=== PATIENT | female | born 1980 | race Caucasian/White ===

== ENCOUNTER → 2020-10-10 | Outpatient (CLI) | payer BC ==
[2020-10-10 09:02] LABS: HCT 39.4 % (34.0-46.0); HGB 12.6 gm/dL (11.4-16.0); MCH 28.7 pg (25.0-35.0); MCHC 32.1 g/dL (31.0-37.0); MCV 89.3 fL (80.0-100.0); Mean Platelet Volume 7.5; Platelet Count 331 k/uL (150-450); RBC 4.41 m/uL (3.80-5.40); RDW 12.7 % (11.5-15.5); WBC 7.8 k/uL (3.8-10.6)
--- NOTE | 2020-10-10 09:07 | MM ---
Reason for exam: screening (asymptomatic). Last mammogram was performed 9 years and 9 months ago. History: Patient is nulliparous. Family history of breast cancer in paternal grandmother at age 60 and breast cancer in mother at age 40. Took hormonal contraceptives for 5 years. Physical Findings: A clinical breast exam by your physician is recommended on an annual basis and results should be correlated with mammographic findings. MG Screening Mammo w CAD Bilateral CC and MLO view(s) were taken. No prior studies available for comparison. The breast tissue is extremely dense which could obscure a lesion on mammography. Focal asymmetry right breast several levels. ASSESSMENT: Incomplete: need additional imaging evaluation, BI-RAD 0 RECOMMENDATION: Special view mammogram and ultrasound of the right breast. [facility] will attempt to contact patient to return for supplemental views and ultrasound.
[2020-10-10 09:48] LABS: T4, Free (Free Thyroxine) 0.94 ng/dL (0.78-2.19)
== END | disposition home or self-care (01) ==
LOC: RADMAMWWP 08:00
PROVIDERS: ATTEND Obstetrics & Gynecology
DX: Z12.31 Encounter for screening mammogram for malignant neoplasm of breast (principal); Z13.220 Encounter for screening for lipoid disorders
CPT/HCPCS: 77067; 80061; 84439; 84443; 84479; 85027

== ENCOUNTER → 2020-10-15 | Outpatient (CLI) | payer BC ==
--- NOTE | 2020-10-15 09:29 | MM ---
Reason for exam: additional evaluation requested from abnormal screening. Last mammogram was performed less than 1 month ago. History: Patient is nulliparous. Family history of breast cancer in paternal grandmother at age 60 and breast cancer in mother at age 40. Took hormonal contraceptives for 5 years beginning at age 17. Physical Findings: Nurse did not find any significant physical abnormalities on exam. MG 3D Work Up W/Cad RT Spot compression CC, spot compression MLO, and LM view(s) were taken of the right breast. Prior study comparison: October 10, 2020, bilateral MG screening mammo w CAD. January 14, 2011, right diagnostic mammogram w/CAD. The breast tissue is heterogeneously dense. This may lower the sensitivity of mammography. There is no discrete abnormality. These results were verbally communicated with the patient and result sheet given to the patient on 10/15/20. ASSESSMENT: Benign, BI-RAD 2 RECOMMENDATION: Return to routine screening mammogram schedule for both breasts.
--- NOTE | 2020-10-15 09:30 | USB ---
Reason for exam: additional evaluation requested from abnormal screening. History: Patient is nulliparous. Family history of breast cancer in paternal grandmother at age 60 and breast cancer in mother at age 40. Took hormonal contraceptives for 5 years beginning at age 17. US Breast Workup RT Technologist: Angelica Kidd Right complete breast ultrasound includes all four quadrants, the retroareolar region and axilla. Finding demonstrates no cystic or solid lesion seen. These results were verbally communicated with the patient and result sheet given to the patient on 10/15/20. ASSESSMENT: Benign, BI-RAD 2 RECOMMENDATION: Return to routine screening mammogram schedule for both breasts.
== END | disposition home or self-care (01) ==
LOC: RADMAMWWP 07:46
PROVIDERS: ATTEND Obstetrics & Gynecology
DX: R92.8 Other abnormal and inconclusive findings on diagnostic imaging of breast (principal)
CPT/HCPCS: 77061; 77065

== ENCOUNTER → 2021-10-16 | Outpatient (CLI) | payer BC ==
--- NOTE | 2021-10-16 10:44 | MM ---
Reason for exam: screening (asymptomatic). Last mammogram was performed 1 year ago. History: Patient is nulliparous. Family history of breast cancer in paternal grandmother at age 60 and breast cancer in mother at age 40. Took hormonal contraceptives for 5 years beginning at age 17. Physical Findings: A clinical breast exam by your physician is recommended on an annual basis and results should be correlated with mammographic findings. MG Screening Mammo w CAD Bilateral CC and MLO view(s) were taken. Prior study comparison: October 15, 2020, right breast MG 3d work up w/cad RT. October 10, 2020, bilateral MG screening mammo w CAD. The breast tissue is heterogeneously dense. This may lower the sensitivity of mammography. Finding: There is a 10 mm obscured round mass in the lower inner quadrant, posterior, middle position of the right breast. ASSESSMENT: Incomplete: need additional imaging evaluation, BI-RAD 0 RECOMMENDATION: Special view mammogram and ultrasound of the right breast. [facility] will attempt to contact patient to return for supplemental views and ultrasound.
== END | disposition home or self-care (01) ==
LOC: RADMAMWWP 07:59
PROVIDERS: ATTEND Obstetrics & Gynecology
DX: Z12.31 Encounter for screening mammogram for malignant neoplasm of breast (principal); Z80.3 Family history of malignant neoplasm of breast
CPT/HCPCS: 77067

== ENCOUNTER → 2021-10-24 | Outpatient (CLI) | payer BC ==
--- NOTE | 2021-10-24 10:32 | USB ---
Reason for exam: additional evaluation requested from abnormal screening. History: Patient is nulliparous. Family history of breast cancer in paternal grandmother at age 60 and breast cancer in mother at age 40. Took hormonal contraceptives for 5 years beginning at age 17. US Breast Workup Limited RT Right limited breast ultrasound including focal area of concern, retroareolar and axilla demonstrates no cystic or solid lesion seen. These results were verbally communicated with the patient and result sheet given to the patient on 10/24/21. ASSESSMENT: Negative, BI-RAD 1 RECOMMENDATION: Return to routine screening mammogram schedule for both breasts.
--- NOTE | 2021-10-24 10:32 | MM ---
Reason for exam: additional evaluation requested from abnormal screening. Last mammogram was performed less than 1 month ago. History: Patient is nulliparous. Family history of breast cancer in paternal grandmother at age 60 and breast cancer in mother at age 40. Took hormonal contraceptives for 5 years beginning at age 17. Physical Findings: Nurse did not find any significant physical abnormalities on exam. MG 3D Work Up W/Cad RT Spot compression CC, spot compression MLO, and LM view(s) were taken of the right breast. Prior study comparison: October 16, 2021, bilateral MG screening mammo w CAD. October 15, 2020, right breast MG 3d work up w/cad RT. The breast tissue is heterogeneously dense. This may lower the sensitivity of mammography. There is no discrete abnormality including area of concern right lower inner quadrant. No significant new findings when compared with previous films. These results were verbally communicated with the patient and result sheet given to the patient on 10/24/21. ASSESSMENT: Benign, BI-RAD 2 RECOMMENDATION: Return to routine screening mammogram schedule for both breasts.
== END | disposition home or self-care (01) ==
LOC: RADMAMWWP 07:38
PROVIDERS: ATTEND Obstetrics & Gynecology
DX: R92.8 Other abnormal and inconclusive findings on diagnostic imaging of breast (principal); Z80.3 Family history of malignant neoplasm of breast
CPT/HCPCS: 77061; 77065

== ENCOUNTER → 2022-10-19 | Outpatient (CLI) | payer BC ==
--- NOTE | 2022-10-20 08:32 | MM ---
Reason for Exam: Screening (asymptomatic). Last screening mammogram was performed 12 month(s) ago. Patient History: Menarche at age 12. Patient has no children. Hormonal Contraceptives for 5 years from age 17 until age 22. Paternal grandmother had breast cancer, age 60. Mother had breast cancer, age 40. Risk Values: Kat 5 year model risk: 1.3%. NCI Lifetime model risk: 18.5%. Prior Study Comparison: 10/15/2020 Right Diagnostic Mammogram, [facility]. 10/16/2021 Bilateral Screening Mammogram, [facility]. 10/24/2021 Right Diagnostic Mammogram, [facility]. Tissue Density: The breast tissue is heterogeneously dense. This may lower the sensitivity of mammography. Findings: Analyzed By CAD. There is no suspicious group of microcalcifications or new suspicious mass in either breast. Overall Assessment: Negative, BI-RAD 1 Management: Screening Mammogram of both breasts in 1 year. A clinical breast exam by your physician is recommended on an annual basis and results should be correlated with mammographic findings. Electronically signed and approved by: Dominick Lee M.D. Radiologis
== END | disposition home or self-care (01) ==
LOC: RADMAMWWP 08:18
PROVIDERS: ATTEND Obstetrics & Gynecology
DX: Z12.31 Encounter for screening mammogram for malignant neoplasm of breast (principal); Z80.3 Family history of malignant neoplasm of breast
CPT/HCPCS: 77063; 77067

== ENCOUNTER → 2023-10-21 | Outpatient (CLI) | payer BC ==
[2023-10-21 15:18] LABS: ALT 19 U/L (8-44); AST 19 U/L (13-35); Albumin 4.7 g/dL (3.8-4.9); Albumin/Globulin Ratio 1.88 Ratio (1.60-3.17); Alkaline Phosphatase 38 U/L (41-126); BUN/Creat Ratio 13.43 Ratio (12.00-20.00); Blood Urea Nitrogen 9.4 mg/dL (9.0-27.0); Calcium 9.8 mg/dL (8.7-10.3); Carbon Dioxide 23.4 mmol/L (21.6-31.8); Chloride 104 mmol/L (96-109); Chol/HDL Ratio 1.77 Ratio; Globulin 2.5 g/dL (1.6-3.3); Glucose 104 mg/dL (70-110); LDL Cholesterol,Calculated 62.9 mg/dL (0.0-131.0); Potassium 4.4 mmol/L (3.5-5.5); Sodium 142 mmol/L (135-145); Total Bilirubin 0.4 mg/dL (0.3-1.2); Total Protein 7.2 g/dL (6.2-8.2); VLDL Calculation 15.12 mg/dL (5.00-40.00)
[2023-10-21 15:21] LABS: HCT 40.7 % (37.2-46.3); HGB 13.1 g/dL (12.0-15.0); MCH 28.6 pg (27.0-32.0); MCHC 32.2 g/dL (32.0-37.0); MCV 88.9 FL (80.0-97.0); Mean Platelet Volume 10.6 FL (9.5-12.2); NRBC Per 100 WBC 0 X 10*3/uL (0.00-0.01); Platelet Count 367 X 10*3/uL (140-440); RBC 4.58 X 10*6/uL (4.10-5.20); RDW 13.1 % (11.5-14.5); WBC 14.29 X 10*3/uL (4.50-10.00)
--- NOTE | 2023-10-21 20:26 | MM ---
Reason for Exam: Screening (asymptomatic). Last screening mammogram was performed 12 month(s) ago. Patient History: Menarche at age 12. Patient has no children. Hormonal Contraceptives for 5 years from age 17 until age 22. Paternal grandmother had breast cancer, age 60. Mother had breast cancer, age 40. Last menstrual period: 10/13/2023 Risk Values: Kat 5 year model risk: 1.4%. NCI Lifetime model risk: 18.3%. Prior Study Comparison: 10/16/2021 Bilateral Screening Mammogram, [facility]. 10/24/2021 Right Diagnostic Mammogram, [facility]. 10/19/2022 Bilateral MG 3D screening mammo w/cad, [facility]. Tissue Density: The breast tissue is heterogeneously dense. This may lower the sensitivity of mammography. Findings: Analyzed By CAD. There is no suspicious group of microcalcifications or new suspicious mass in either breast. Overall Assessment: Negative, BI-RAD 1 Management: Screening Mammogram of both breasts in 1 year. . Patient should continue monthly self-breast exams. A clinical breast exam by your physician is recommended on an annual basis. This exam should not preclude additional follow-up of suspicious palpable abnormalities. Note on Kat scores and lifetime risk: 1. A Kat score greater than 3% is considered moderate risk. If this is the case, consider specialist referral to assess eligibility for a risk reducing agent. 2. If overall lifetime risk for the development of breast cancer is 20% or higher, the patient may qualify for future screening with alternating mammogram and breast MRI. Electronically signed and approved by: Jeremiah Patterson M.D. Radiologist
== END | disposition home or self-care (01) ==
LOC: RADMAMWWP 07:38
PROVIDERS: ATTEND Obstetrics & Gynecology
DX: Z12.31 Encounter for screening mammogram for malignant neoplasm of breast (principal); Z13.220 Encounter for screening for lipoid disorders; I10 Essential (primary) hypertension; Z80.3 Family history of malignant neoplasm of breast
CPT/HCPCS: 77063; 77067; 80053; 80061; 85027

== ENCOUNTER → 2024-11-27 | Outpatient (CLI) | payer BC ==
--- NOTE | 2024-11-28 08:45 | MM ---
Reason for Exam: Screening (asymptomatic). Last mammogram was performed 1 year(s) and 2 month(s) ago. Patient History: Menarche at age 12. Patient has no children. Hormonal Contraceptives for 5 years from age 17 until age 22. Paternal grandmother had breast cancer, age 60. Mother had breast cancer, age 40. Risk Values: Kat 5 year model risk: 1.5%. NCI Lifetime model risk: 18.2%. Prior Study Comparison: 10/24/2021 Right Diagnostic Mammogram, [facility]. 10/19/2022 Bilateral MG 3D screening mammo w/cad, [facility]. 10/21/2023 Bilateral MG 3D screening mammo w/cad, [facility]. Tissue Density: The breasts are heterogeneously dense, which may obscure small masses. Findings: Analyzed By CAD. Bilateral areas of asymmetric density are unchanged. Central posterior asymmetric density left cc view was present on the 2022 exam. There is no suspicious group of microcalcifications or new suspicious mass in either breast. Overall Assessment: Benign, BI-RAD 2 Management: Screening Mammogram of both breasts in 1 year. Patient should continue monthly self-breast exams. A clinical breast exam by your physician is recommended on an annual basis. This exam should not preclude additional follow-up of suspicious palpable abnormalities. Note on Kat scores and lifetime risk: 1. A Kat score greater than 3% is considered moderate risk. If this is the case, consider specialist referral to assess eligibility for a risk reducing agent. 2. If overall lifetime risk for the development of breast cancer is 20% or higher, the patient may qualify for future screening with alternating mammogram and breast MRI. [facility], , 11/28/2024 8:42 AM. Electronically signed and approved by: Jeremiah Patterson M.D. Radiologist
== END | disposition home or self-care (01) ==
LOC: RADMAMWWP 15:16
PROVIDERS: ATTEND Obstetrics & Gynecology
DX: Z12.31 Encounter for screening mammogram for malignant neoplasm of breast (principal); R92.333 Mammographic heterogeneous density, bilateral breasts; Z80.3 Family history of malignant neoplasm of breast
CPT/HCPCS: 77063; 77067